=== PATIENT | male | born 1990 | race Caucasian/White ===

== ENCOUNTER 2017-11-16 22:46 | Emergency (ER) | payer SELFPAY ==
[2017-11-16 22:47] VITALS: BP 158/92; PULSE 85; RESP 15; TEMP 36.7; BMI 68.3
--- NOTE | 2017-11-16 23:21 | CT_ITS ---
STUDY: CT BRAIN WITHOUT CONTRAST REASON FOR EXAM: Male, 27 years old. Headache RADIATION DOSAGE (If Supplied By Facility): CTDIvol = ( 44.99 ) mGy, DLP = ( 796.11 ) mGycm TECHNIQUE: Transaxial CT imaging of the brain was performed without administration of intravenous contrast material. Individualized dose optimization techniques were used for this CT. COMPARISON: None. FINDINGS: Normal soft tissue structures. Normal calvarium. Normal size ventricles and extra-axial spaces for the patient's age. Normal white matter tracts of the cerebral hemispheres. Normal basal ganglia and thalami. Normal brainstem. Normal cerebellum. There is no intracranial hemorrhage. There are no findings of an acute ischemic infarction. Normal visualized paranasal sinuses. CT/Brain/Head without Contrast IMPRESSION: Normal unenhanced CT scan of the brain. Electronically Signed: Lan Davalos MD at 0:36 EDT Tel , Service support ,
[2017-11-16] MEDS: Acetaminophen 325 MG Tablet 650 MG PO (23:52)
--- NOTE | 2017-11-17 00:47 | ED.VISSUMM ---
- ER Visit Summary Date of Service: 11/17/17 Chief Complaint: [Headache] History of Present Illness: The patient is a 27 M [presents to the emergency department complaint of headache that started about 1 week ago. Patient states that the headache came on gradually. Patient has been taken Excedrin and Tylenol which usually resolves the headache but then it comes back. Patient states the headache is sometimes frontal and sometimes in the back of his head. Patient denies any nausea or vomiting with it. Patient denies any photophobia. Patient denies recent illness. Patient denies any head injuries. Patient states he gets headaches occasionally but never been diagnosed with migraines. No family history of brain tumors or aneurysms.] Patient took Excedrin at 7 PM tonight and currently rates his headache a 5 out of 10. Physical Examination: [HEENT-PERRLA, EOMI. Cranial nerves II through XII grossly intact. TMs clear. Mucous membranes moist. No adenopathy. Cardiovascular-regular rate and rhythm without murmur or ectopy Lungs-clear to auscultation, chest wall stable without crepitus or subcu emphysema Abdomen-normoactive bowel sounds, soft, nontender, no rebound or rigidity, no peritoneal signs. Neuro atjo-irydlr-[id number] and heel to mackenzie testing within normal limits, negative Romberg, negative pronator drift, fundi benign Extremities-intact ?4, normal range of motion, normal pulses, atraumatic] Test Results: [CT scan of the brain without contrast was normal] Emergency Department Course and Treatment: [Patient received Tylenol 650 mg p.o. and his headache resolved] Treatment Plan: [Patient to continue with Tylenol and ibuprofen as needed for headache. Patient will be referred to primary care physician instruction librarian for no doc] Disposition: [Discharged home in stable condition. Patient to return if worsening headache, difficulty with balance or speech, or condition should worsen in any way.] Impression: [Cephalgia-resolved] This note was generated with [employer] dictation software. It may contain incorrect words, spelling, and punctuation that were not noted in review of the chart prior to signing ED Disposition - Plan for ED Patient: Chief Complaint: Headache Referrals: Care Physician,No Primary [Primary Care Provider] -
--- NOTE | 2017-11-17 00:49 | ED.DEP ---
ED Disposition - Plan for ED Patient: Chief Complaint: Headache Instructions: ED Cephalgia Unspecified Referrals: Care Physician,No Primary [Primary Care Provider] - Kimberly Rivers MD [STAFF PHYSICIAN] - 5-7 Days
[2017-11-17 00:58] VITALS: BP 134/78; PULSE 92; RESP 16; O2SAT 97
== END 2017-11-17 00:58 | disposition home or self-care (01) ==
LOC: ED 23:29
PROVIDERS: Emergency Provider Emergency Medicine
DX: R51 Headache (principal); F17.220 Nicotine dependence, chewing tobacco, uncomplicated
CPT/HCPCS: 70450; 99282

== ENCOUNTER 2019-02-09 16:52 | Emergency (ER) | payer SELFPAY ==
[2019-02-09 16:53] VITALS: BP 163/99; PULSE 101; RESP 18; TEMP 36.8; O2SAT 96; BMI 77.0
[2019-02-09 18:27] LABS: Mucous, Urine 0 SEEN /hpf (<or=2+); Squamous Epithelial Cells - UA 0 SEEN /hpf (0-5)
[2019-02-09 18:29] LABS: Color, Urine Yellow (Yellow); Glucose, Dipstick Normal (Normal); Ketone-Dipstick 5 mg/dl (Negative); Leukocyte Esterase-Dipstick 500 /ul (Negative); Nitrite-Dipstick Positive (Negative); Occult Blood-Urine 250 /ul (Negative); Protein-Dipstick 100 mg/dl (Negative); Specific Gravity, Urine 1.015 (1.002-1.030); Urine Bilirubin Dipstick Negative (Negative); Urine Clarity Cloudy (Clear); Urine Urobilinogen Normal (Normal)
--- NOTE | 2019-02-09 18:29 | ED.DCSUM_ITS ---
- ER Visit Summary Date of Service: 02/09/19 Chief Complaint: Left flank pain History of Present Illness: The patient is a 28 M presenting with left flank pain. Patient states this started suddenly this morning. He has a history of kidney stones and states this feels similar. He has noticed blood in his urine and burning with urination. The pain radiates to his groin but denies severe testicular pain. Denies other complaints. Physical Examination: Vitals are stable. Patient is afebrile. Alert no acute distress. HEENT exam is unremarkable. Neck is supple. Lungs are clear and equal bilaterally. Heart is regular rate and rhythm. Abdomen is soft obese, left lower quadrant tenderness. No guarding or rebound. : No testicular tenderness Extremities are unremarkable. Skin is warm and dry. No focal neurologic deficit. Remainder of exam is unremarkable. Emergency Department Course and Treatment: Patient was given morphine, Zofran, Toradol IV. He had itching following morphine and was given Benadryl with improvement. On reevaluation he is resting comfortably. Urinalysis shows 50- 100 white blood cells, 10-25 red blood cells, 3+ bacteria. Due to patient's morbid obesity unable to obtain CT flank. This may be kidney stone versus UTI. Patient is resting comfortably. He is given prescription for Macrobid due to penicillin allergy. He is given prescription for Percocet. He will be discharged to follow-up with Dr. Schmitz. Advised return to the ED for worsening complaints. Disposition: Discharge home Impression: Left flank pain This note was generated with [employer] dictation software. It may contain incorrect words, spelling, and punctuation that were not noted in review of the chart prior to signing ED Disposition - Plan for ED Patient: Instructions: FLANK PAIN, Uncertain Cause Prescriptions: Nitrofurantoin Macrocrystals [Macrobid] 100 mg PO Q12 #14 cap Prescription Printed Oxycodone HCl/Acetaminophen [Percocet 5/325] 1 tab PO Q6H PRN PRN 3 Days #12 tab PRN Reason: Pain Prescription Printed Referrals: Care Physician,No Primary [Primary Care Provider] -
[2019-02-09] MEDS: Ondansetron 4 MG/2 ML Vial IV (18:30)
[2019-02-09] MEDS: Morphine 4 MG/ML Syringe IV (18:30)
[2019-02-09] MEDS: Ketorolac 30 MG/ML Syringe IV (18:30)
[2019-02-09] MEDS: DiphenhydrAMINE 50 MG/ML Syringe 25 MG IV (18:39)
[2019-02-09 18:42] LABS: Bacteria 3+ /hpf (None Seen); Red Blood Cells-Urine 10-25 SEEN /hpf (0-5); White Blood Cells 50-100 SEEN /hpf (0-5)
--- NOTE | 2019-02-09 19:36 | ED.DEP ---
ED Disposition - Plan for ED Patient: Instructions: FLANK PAIN, Uncertain Cause Prescriptions: Nitrofurantoin Macrocrystals [Macrobid] 100 mg PO Q12 #14 capsule Oxycodone HCl/Acetaminophen [Percocet 5/325] 1 tablet PO Q6H PRN PRN 3 Days #12 tablet PRN Reason: Pain Referrals: Care Physician,No Primary [Primary Care Provider] -
[2019-02-09] MEDS: Nitrofurantoin Macrocrystals 100 MG Capsule PO (20:05)
[2019-02-09 20:08] VITALS: PULSE 92; RESP 18; O2SAT 97
== END 2019-02-09 20:08 | disposition home or self-care (01) ==
LOC: ED 18:29
PROVIDERS: Emergency Provider Emergency Medicine
DX: R10.9 Unspecified abdominal pain (principal); Z87.442 Personal history of urinary calculi; E66.01 Morbid (severe) obesity due to excess calories; Z88.0 Allergy status to penicillin
CPT/HCPCS: 81001; 87086; 87088; 87186; 96374; 96375; 99284; J7050; A4216; J2405